=== PATIENT | female | born 1995 | race Caucasian/White ===

== ENCOUNTER 2017-04-21 17:39 | Emergency (ER) | payer MEDICAID ==
[2017-04-21 18:04] VITALS: TEMP 98.3; BMI 27.8
[2017-04-21] MEDS ORDERED: Sodium Chloride 0.9% 1,000 ML IV STA (18:07)
[2017-04-21 18:33] LABS: BASO # 0.03 K/mm3 (0.0-2.0); BASO % 0.3 % (0.0-3.0); EOS # 0.1 (0.0-0.7); EOS % 1.2 % (1.5-5.0); GRAN % 51.6 % (50.0-68.0); HEMATOCRIT 37.9 % (36.0-48.0); LYMPH # 3.8 (1.2-3.4); LYMPH % 39.5 % (22.0-35.0); MEAN CELL VOLUME 94.8 fl (80.0-105.0); MEAN CORPUSCULAR HEMOGLOBIN 33.3 pg (25.0-35.0); MEAN CORPUSCULAR HGB CONC 35.1 g/dl (31.0-37.0); MEAN PLATELET VOLUME 10.3 fl (7.0-11.0); MONO # 0.7 (0.1-0.6); MONO % 7.4 % (1.0-6.0); RED CELL DISTRIBUTION WIDTH 12.5 % (11.5-14.5); URINE APPEARANCE CLEAR (CLEAR); URINE BILIRUBIN NEGATIVE (NEGATIVE); URINE BLOOD MODERATE (NEGATIVE); URINE COLOR YELLOW (YELLOW); URINE GLUCOSE (UA) NEGATIVE (NEGATIVE); URINE KETONE NEGATIVE (NEGATIVE); URINE LEUKOCYTE ESTERASE NEGATIVE Leu/uL (NEGATIVE); URINE PROTEIN NEGATIVE mg/dL (<30 mg/dL); URINE UROBILINOGEN 0.2 E.U./dL (<1 E.U./dL); WHITE BLOOD COUNT 9.7 10^3/ul (4.5-11.0)
[2017-04-21 18:42] LABS: ALB/GLOB RATIO 1.4 (1.1-1.8); ALKALINE PHOSPHATASE 38 U/L (38-126); ALT/SGPT 42 U/L (7-56); AST/SGOT 32 U/L (14-36); BILIRUBIN,TOTAL 0.4 mg/dL (0.2-1.3); BLOOD UREA NITROGEN 10 mg/dL (7-21); CALCIUM 9.3 mg/dL (8.4-10.5); CARBON DIOXIDE 23 mmol/L (21-33); CHLORIDE 106 mmol/L (98-107); GFR AFRICAN-AMERICAN > 60; GLUCOSE,RANDOM 137 mg/dL (70-110); POTASSIUM 3.6 mmol/L (3.6-5.0); SODIUM 141 mmol/L (132-148); TOTAL PROTEIN 7.3 g/dL (5.8-8.3); URINE BACTERIA MOD (NEG); URINE RBC 15 - 20 /hpf (0-2)
[2017-04-21 18:44] LABS: INR 1.14 (0.93-1.08)
--- NOTE | 2017-04-21 19:20 | ED PDOC ---
Arrival/HPI - General Chief Complaint: Female Genitourinary Time Seen by Provider: 04/21/17 18:06 Historian: Patient - History of Present Illness Narrative History of Present Illness (Text): 04/21/17 19:17 21yo female , LMP March 14 present with complaint of crampy LLQ abdominal pain that radiates up to her upper abdomen x 5days. Pain is associated with nausea. States home test was positive and she have her first appointment with her OB scheduled for next week. She denies vaginal bleeding, vomiting, diarrhea, urinary symptoms, any other complaint. Past Medical History - Provider Review Nursing Documentation Reviewed: Yes - Past History Past History: No Previous - Tetanus Immunization Tetanus Immunization: Up to Date - Past Medical History Past Medical History: No Previous - Cardiac Hx Cardiac Disorders: No Hx Hypertension: No - Pulmonary Hx Tuberculosis: No - Neurological HX Cerebrovascular Accident: No Hx Seizures: No - Hematological/Oncological Hx Cancer: No - Integumentary Hx Dermatological Disorder: No - Musculoskeletal/Rheumatological Hx Musculoskeletal Disorders: No - Gastrointestinal Hx Gastrointestinal Disorders: No - Genitourinary/Gynecological Hx Genitourinary Disorders: No Hx Sexually Transmitted Diseases: No - Psychiatric Hx Anxiety: Yes Hx Bipolar Disorder: Yes Hx Depression: Yes Hx Emotional Abuse: No Hx Physical Abuse: No Hx Substance Use: No - Past Surgical History Past Surgical History: No Previous - Suicidal Assessment Feels Threatened In Home Enviroment: No Family/Social History - Physician Review Nursing Documentation Reviewed: Yes Family/Social History: Unknown Family HX Smoking Status: Former Smoker Hx Alcohol Use: No Hx Substance Use: No Hx Substance Use Treatment: No Allergies/Home Meds Allergies/Adverse Reactions: Allergies No Known Allergies Allergy (Verified 04/21/17 17:55) Home Medications: Home Meds Medication Instructions Recorded Confirmed No Known Home Med 04/21/17 04/21/17 Review of Systems - Physician Review All systems were reviewed & negative as marked: Yes - Review of Systems Constitutional: Normal Eyes: Normal ENT: Normal Respiratory: Normal Cardiovascular: Normal Gastrointestinal: Abdominal Pain, Nausea. absent: Constipation, Diarrhea, Vomiting, Hematochezia, Hematemesis Genitourinary Female: Normal Musculoskeletal: Normal Skin: Normal Neurological: Normal Endocrine: Normal Hemo/Lymphatic: Normal Psychiatric: Normal Physical Exam Vital Signs Reviewed: Yes Vital Signs Temp Pulse Resp BP Pulse Ox 04/21/17 20:35 88 16 116/57 L 99 04/21/17 18:00 98.3 F 96 H 17 125/79 99 04/21/17 17:58 98.3 F 96 H 18 125/79 99 Temperature: Afebrile Blood Pressure: Normal Pulse: Regular Respiratory Rate: Normal Appearance: Positive for: Well-Appearing, Non-Toxic, Comfortable Pain Distress: None Mental Status: Positive for: Alert and Oriented X 3 - Systems Exam Head: Present: Atraumatic, Normocephalic Pupils: Present: PERRL Extroacular Muscles: Present: EOMI Conjunctiva: Present: Normal Mouth: Present: Moist Mucous Membranes Neck: Present: Normal Range of Motion Respiratory/Chest: Present: Clear to Auscultation, Good Air Exchange. No: Respiratory Distress, Accessory Muscle Use Cardiovascular: Present: Regular Rate and Rhythm, Normal S1, S2. No: Murmurs Abdomen: Present: Normal Bowel Sounds, Other (Soft). No: Tenderness, Distention , Peritoneal Signs, Rebound, Guarding, McBurney's Point Tender, Rovsing's Sign Present Back: Present: Normal Inspection Upper Extremity: Present: Normal Inspection. No: Cyanosis, Edema Lower Extremity: Present: Normal Inspection. No: Edema Neurological: Present: GCS=15, CN II-XII Intact, Speech Normal Skin: Present: Warm, Dry, Normal Color. No: Rashes Psychiatric: Present: Alert, Oriented x 3, Normal Insight, Normal Concentration Medical Decision Making ED Course and Treatment: 04/21/17 21:20 PT in ED for stated history. She was not in any distress. She denied vaginal bleeding in ED. Lab was unremarkable and beta of 1079.00 was noted Transvaginal US IMPRESSION: Small anechoic focus in the endometrium most consistent with intrauterine gestational sac. The gestational sac size is too small for measurement of estimated gestational age. No pole or yolk sac yet identified. Correlate clinically. Followup beta-hCG and ultrasound recommended. All result was DW the ot. She was advised to f/u with her OB in 2days for a repeat beta quant. Advised TRT ED if she can't see her OB in 2days or to return to ED for any new or worsening symptoms. - Lab Interpretations Lab Results: 04/21/17 18:13 04/21/17 18:13 Lab Results 04/21/17 18:13: Beta HCG, Quant 1079.00 H 04/21/17 18:13: Sodium 141, Potassium 3.6, Chloride 106, Carbon Dioxide 23, Anion Gap 16, BUN 10, Creatinine 0.7, Est GFR ( Amer) > 60, Est GFR (Non- Af Amer) > 60, Random Glucose 137 H, Calcium 9.3, Total Bilirubin 0.4, AST 32, ALT 42, Alkaline Phosphatase 38, Total Protein 7.3, Albumin 4.2, Globulin 3.0, Albumin/Globulin Ratio 1.4 04/21/17 18:13: Urine Color Yellow, Urine Appearance Clear, Urine pH 6.0, Ur Specific Bruin 1.020, Urine Protein Negative, Urine Glucose (UA) Negative, Urine Ketones Negative, Urine Blood Moderate H, Urine Nitrate Negative, Urine Bilirubin Negative, Urine Urobilinogen 0.2, Ur Leukocyte Esterase Negative, Urine RBC 15 - 20, Urine WBC 1 - 3, Ur Epithelial Cells 6 - 8, Urine Bacteria Mod, Urine Other Fiber, Urine HCG, Qual Positive 04/21/17 18:13: PT 12.5, INR 1.14 H, APTT 29.0 04/21/17 18:13: WBC 9.7 D, RBC 4.00, Hgb 13.3, Hct 37.9, MCV 94.8, MCH 33.3, MCHC 35.1, RDW 12.5, Plt Count 264, MPV 10.3, Gran % 51.6, Lymph % (Auto) 39.5 H , Vigo % (Auto) 7.4 H, Eos % (Auto) 1.2 L, Baso % (Auto) 0.3, Gran # 5.00, Lymph # 3.8 H, Vigo # 0.7 H, Eos # 0.1, Baso # 0.03 - RAD Interpretation Radiology Orders: 04/21/17 18:06 OB TRANSVAGINAL [US] Stat - Medication Orders Current Medication Orders: Discontinued Medications Sodium Chloride (Sodium Chloride 0.9%) 1,000 mls @ 999 mls/hr IV .Q1H1M STA Stop: 04/21/17 19:07 Last Admin: 04/21/17 18:21 Dose: Not Given Non-Admin Reason: Patient Refused Disposition/Present on Arrival - Present on Arrival Any Indicators Present on Arrival: No History of DVT/PE: No History of Uncontrolled Diabetes: No Urinary Catheter: No History of Decub. Ulcer: No History Surgical Site Infection Following: None - Disposition Have Diagnosis and Disposition been Completed?: Yes Diagnosis: Abdominal pain during Disposition: HOME/ ROUTINE Disposition Time: 21:15 Patient Plan: Discharge Patient Problems: Current Active Problems Problem Status Onset Abdominal pain during Acute Condition: STABLE Discharge Instructions (ExitCare): Abdominal Pain in (ED) Additional Instructions: Follow up with your OB in 2days for a repeat Beta quant Return to ED if your unable to reach your OB or for any new or worsening symptoms Referrals: Albino Stoner [Primary Care Provider] - Follow up with primary Forms: [facility] (Romansh)
--- NOTE | 2017-04-21 21:05 | US ---
EXAM: US , Transabdominal US , Transvaginal CLINICAL HISTORY: 21 years old, female; Pain; complicated by abdominal or pelvic pain; Lower; First trimester; Gestational age or lmp: Lmp 03/14/17; ; Additional info: Abdominal pain/ TECHNIQUE: Real-time transabdominal and transvaginal obstetrical ultrasound of the maternal pelvis and a first trimester with image documentation. Transvaginal imaging was used for better evaluation of the fetus and adnexa. COMPARISON: No relevant prior studies available. FINDINGS: Gestation: Small anechoic focus in the endometrium most consistent with gestational sac. The size is too small for measurement of estimated gestational age. No pole or yolk sac yet identified. Endometrial thickness measured at 9 mm. Uterus/cervix: No acute abnormality as visualized. No myometrial mass. Ovaries: No acute abnormality as visualized. Bilateral Doppler flow. Free fluid: No free fluid. IMPRESSION: Small anechoic focus in the endometrium most consistent with intrauterine gestational sac. The gestational sac size is too small for measurement of estimated gestational age. No pole or yolk sac yet identified. Correlate clinically. Followup beta-hCG and ultrasound recommended.
[2017-04-21 21:35] VITALS: BP 103/70; PULSE 90; RESP 17; O2SAT 98
== END 2017-04-21 21:52 | disposition home or self-care (01) ==
LOC: ED 17:39
DX: O26.891 Other specified pregnancy related conditions, first trimester (principal); R10.32 Left lower quadrant pain

== ENCOUNTER 2018-03-28 18:42 | Emergency (ER) | payer MEDICAID ==
[2018-03-28 18:43] VITALS: BMI 25.7
== END 2018-03-28 18:55 | disposition left against medical advice (07) ==
LOC: ED 18:42
DX: Z02.89 Encounter for other administrative examinations (principal); R10.9 Unspecified abdominal pain